=== PATIENT | female | born 1935 | race Caucasian/White ===

== ENCOUNTER 2019-07-01 12:27 | Inpatient (IN) ==
[2019-07-01 13:37] LABS: Basophils % 0.4 % (0.0-0.8); Eosinophils # 0.1 10*3/uL (0.0-0.87); Hematocrit 39.5 VOL% (35.7-47.0); Hemoglobin 12.1 GM/DL (12.0-16.0); Immature Granulocytes % 0.1 %; Immature Granulocytes Absolute 0.01 #; Lymphocytes # 1.7 10*3/uL (1.4-4.0); Lymphocytes % 24.6 % (21.3-54.2); Mean Corpuscular HGB Conc 30.6 GM/DL (32-36); Mean Corpuscular Volume 97.3 FL (87-102); Mean Platelet Volume 9.3 FL (9.6-12.0); Monocytes % 6.8 % (1.7-12.7); Neutrophils % 67.1 % (38.7-73.9); Platelet Count 199 T/CUMM (130-400); Red Blood Count 4.06 MC/CUMM (3.8-5.5); Red Cell Distribution Width 12.9 % (9.3-17.3); White Blood Count 6.8 T/CUMM (4-12)
[2019-07-01 13:47] LABS: INR 0.9; PT Patient Result 9.8 SECS (9.8-11.9); Partial Thromboplastin Time 23.6 SECS (23.9-33.8)
[2019-07-01 14:00] LABS: Alanine Aminotransferase 26 U/L (13-56); Albumin 4.1 G/DL (3.4-5.0); Alkaline Phosphatase 106 U/L (45-117); Aspartate Amino Transferase 23 U/L (0-37); Blood Urea Nitrogen 19 MG/DL (7-18); Calcium 9.5 MG/DL (8.5-10.1); Estimated Glom Filtration Rate 66 ML/MIN; Glucose 87 MG/DL (74-106); Osmolality,Calculated 279.4 MOS/KG (273-304); Total Protein 7.9 G/DL (6.4-8.3)
[2019-07-01] MEDS ORDERED: DEXTROSE 50% 25 GM/50 ML VIAL IV PRN (14:46)
[2019-07-01] MEDS ORDERED: GLUCAGON 1 MG VIAL IM PRN (14:46)
[2019-07-01] MEDS ORDERED: LABETALOL 20 MG/4 ML SYRINGE IV PRN (14:51)
[2019-07-01 14:58] LABS: Apearance,Urine Slightly Hazy (Clear); Bilirubin,Urine Negative (Negative); Blood, Urine Negative (Negative); Glucose,Urine (UA) Negative (Negative); Ketones,Urine 5 mg/dL (Negative); Mucus,Urine Occasional /LPF (Occasional); Nitrite,Urine Negative (Negative); Protein,Urine Negative; RBC,Urine 2 /HPF (0-4); Squamous Epithelial Cell,Urine Occasional /HPF (0-10); Transitional Epi Cells,Urine Occasional /HPF (<1); Urine Color Yellow (Yellow); Urine Specific Gravity 1.014 (1.001-1.035); Urine Urobilinogen < 2.0 EU/DL (0.2-1.0); WBC,Urine 3 /HPF (0-6)
[2019-07-01 15:16] LABS: Risk Ratio 1.79
[2019-07-01 15:20] LABS: Barbiturates Screen,Urine Negative (Negative); Benzodiazepines Screen,Urine Negative (Negative); Cannabinoid Screen,Urine Negative (Negative); Opiate Screen,Urine Negative (Negative); Phencyclidine Screen,Urine Negative (Negative)
[2019-07-01] MEDS: ENOXAPARIN 40 MG/0.4 ML SYRINGE SUBCUT SCH (15:26)
[2019-07-01] MEDS: SODIUM CHLORIDE 0.9% 1,000 ML IV SCH (15:40)
[2019-07-01] MEDS: ACETAMINOPHEN 325 MG TABLET PO PRN ×2 (16:47→21:00)
[2019-07-01] MEDS: ROSUVASTATIN 20 MG TABLET PO SCH (21:00)
[2019-07-02 06:46] LABS: Basophils % 0.4 % (0.0-0.8); Eosinophils # 0.1 10*3/uL (0.0-0.87); Eosinophils % 1.8 % (0.00-10.9); Hematocrit 31.4 VOL% (35.7-47.0); Immature Granulocytes % 0.2 %; Immature Granulocytes Absolute 0.01 #; Lymphocytes # 1.8 10*3/uL (1.4-4.0); Lymphocytes % 35.1 % (21.3-54.2); Mean Corpuscular HGB Conc 30.6 GM/DL (32-36); Mean Corpuscular Volume 99.4 FL (87-102); Mean Platelet Volume 10.3 FL (9.6-12.0); Monocytes % 9.6 % (1.7-12.7); Neutrophils % 52.9 % (38.7-73.9); Platelet Count 168 T/CUMM (130-400); Red Blood Count 3.16 MC/CUMM (3.8-5.5); Red Cell Distribution Width 12.9 % (9.3-17.3)
[2019-07-02 06:53] LABS: Hemoglobin 9.6 GM/DL (12.0-16.0)
[2019-07-02 07:04] LABS: Calcium 8.8 MG/DL (8.5-10.1); Osmolality,Calculated 283.1 MOS/KG (273-304)
[2019-07-02] MEDS ORDERED: ASPIRIN EC 81 MG TABLET PO SCH (09:00)
[2019-07-02] MEDS: ASPIRIN EC 81 MG TABLET PO SCH (09:17)
[2019-07-02] MEDS: CHOLECALCIFEROL 5,000 UNIT TABLET PO SCH (09:17)
[2019-07-02] MEDS: LOSARTAN 25 MG TABLET PO SCH (09:17)
[2019-07-02] MEDS ORDERED: LORazepam 2 MG/1 ML VIAL IV ONE (12:33)
[2019-07-02] MEDS: ENOXAPARIN 40 MG/0.4 ML SYRINGE SUBCUT SCH (15:58)
[2019-07-02] MEDS: CLOPIDOGREL 75 MG TABLET PO SCH (15:58)
[2019-07-02] MEDS: SODIUM CHLORIDE 0.9% 1,000 ML IV SCH (19:15)
[2019-07-02] MEDS: ROSUVASTATIN 20 MG TABLET PO SCH (20:43)
[2019-07-02] MEDS: ACETAMINOPHEN 325 MG TABLET PO PRN (20:44)
[2019-07-03 05:07] LABS: Basophils % 0.4 % (0.0-0.8); Eosinophils # 0.1 10*3/uL (0.0-0.87); Eosinophils % 2.4 % (0.00-10.9); Hematocrit 31.9 VOL% (35.7-47.0); Immature Granulocytes % 0.2 %; Immature Granulocytes Absolute 0.01 #; Lymphocytes # 1.7 10*3/uL (1.4-4.0); Lymphocytes % 33.1 % (21.3-54.2); Mean Corpuscular HGB Conc 31.3 GM/DL (32-36); Mean Corpuscular Volume 94.9 FL (87-102); Mean Platelet Volume 10.2 FL (9.6-12.0); Monocytes % 8.8 % (1.7-12.7); Neutrophils % 55.1 % (38.7-73.9); Platelet Count 169 T/CUMM (130-400); Red Blood Count 3.36 MC/CUMM (3.8-5.5); Red Cell Distribution Width 12.9 % (9.3-17.3)
[2019-07-03 05:59] LABS: Calcium 9.2 MG/DL (8.5-10.1); Osmolality,Calculated 282.3 MOS/KG (273-304)
[2019-07-03] MEDS: ACETAMINOPHEN 325 MG TABLET PO PRN (07:20)
[2019-07-03] MEDS: CLOPIDOGREL 75 MG TABLET PO SCH (09:01)
[2019-07-03] MEDS: LOSARTAN 25 MG TABLET PO SCH (09:01)
[2019-07-03] MEDS: CHOLECALCIFEROL 5,000 UNIT TABLET PO SCH (09:01)
[2019-07-03] MEDS: ASPIRIN EC 81 MG TABLET PO SCH (09:01)
[2019-07-03 11:58] VITALS: BP 132/76
== END 2019-07-03 14:25 | disposition home or self-care (01) | DRG 66 ==
LOC: N.ED 12:27 → N.EDINP 12:27 → N.TELES 15:34
PROVIDERS: ADMIT Internal Medicine; ATTEND Internal Medicine